=== PATIENT | male | born 1985 | race Caucasian/White ===

== ENCOUNTER 2017-04-09 22:50 | Emergency (ER) | payer OTHER ==
[~2017-04-09] VITALS: Ht 162.6 cm; Wt 59.0 kg
[2017-04-09] MEDS ORDERED: ACET500T68 PO (23:20)
--- NOTE | 2017-04-09 23:27 | PHYS DOC ---
General Chief Complaint: GROIN PAIN Stated Complaint: THINKS HAS HERNIA Time Seen by MD: 22:51 Source: patient Exam Limitations: no limitations Problems: History of Present Illness Initial Comments Pt is 31/M to ED c/o left groin pain. Pt states he's had left groin pain starting yesterday, he is requesting a hernia check. Pt has history of traumatic right sided testicular torsion suffered 2002 during a wrestling duel. 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 Pt denies recent trauma, no urinary or bowel symptoms. Pt points to his lateral left testicle when isolating his pain, however states it is worse when straining/lifting. No prearrival treatment, pt normally healthy. Timing/Duration: 24 hours Severity: moderate Modifying Factors: worse with movement, improves with rest Associated Symptoms: other Allergies: Coded Allergies: No Known Drug Allergies (Unverified , 04/09/17) Past Medical History Medical History: other (traumatic right testicle torsion) Surgical History: other (removal right testicle) Social History Smoker: cigarettes Alcohol: none Drugs: none Review of Systems Constitutional: denies chills, denies diaphoresis, denies fever, denies malaise Respiratory: denies cough, denies shortness of breath Cardiovascular: denies chest pain, denies palpitations, denies syncope Gastrointestinal: denies abdominal pain, denies diarrhea, denies nausea, denies vomiting Genitourinary: see HPI Musculoskeletal: denies back pain, denies joint swelling, denies neck pain Psychiatric/Neurological: denies headache, denies numbness, denies paresthesia Physical Exam General Appearance: WD/WN, no apparent distress Eyes: bilateral eye normal inspection, bilateral eye PERRL, bilateral eye EOMI Ear, Nose, Throat: normal ENT inspection Neck: non-tender, supple Respiratory: normal breath sounds, no respiratory distress Cardiovascular: normal peripheral pulses, regular rate, rhythm Gastrointestinal: normal bowel sounds, non tender, soft, no organomegaly, other (: right testicle absent, otherwise nl circ male. Mild right inguinal defect, does not reproduce chief complaint. Exquisite TTP left testicle no swell/ecchymoses/erytyhema/"blue dot.") Back: normal inspection, no CVA tenderness Extremities: non-tender, normal inspection Neurologic/Psychiatric: health clinician II-XII nml as tested, no motor/sensory deficits, alert, normal mood/affect, oriented x 3 Skin: normal color, warm/dry Orders, Labs, Meds UA: 100 glu 0034: Time in department 1h 44min. US not yet completed, pt will have prolonged ED course due to radiology delay. Pt rechecked, has worsening of pain. Beulah 10mg/zofran odt 4mg given. PATIENT: ELFEGO RUIZ ACCOUNT: [id number] : 1985 LOCATION: ER AGE: 31 SEX: M EXAM STATUS: REG ER ORD. PHYSICIAN: NABIL HAMILTON DO REASON: L testicular pain, h/o torsion/removal right testicle PROCEDURE: TESTICULAR/SCROTUM Testicular ultrasound HISTORY: Left testicular pain, redness and swelling. History of right orchiectomy due to torsion in the past. TECHNIQUE: Grayscale and duplex Doppler sonography were utilized. FINDINGS: Left testicle measures 4.2 x 1.9 x 2.8 cm. There is diffuse hypervascularity of the left testicle without enlargement or edema. No testicular mass or microlithiasis. Normal testicular waveforms are present. No enlargement or hypervascularity of the epididymis. No hydrocele. Mild varicocele documented. Right testicle is absent. IMPRESSION: Right orchiectomy. There is hypervascularity of the left testicle which may be indicative of orchitis. No evidence of left testicular torsion. Mild left varicocele is present. Electronically signed by: West Greene MD (04/10/2017 1:14 AM) [facility] DICTATED AND SIGNED BY: WEST GREENE MD DATE: 04/10/17111 CC: PCP,UNKNOWN; NABIL HAMILTON DO ~ I discussed findings with the patient as well as the treatment plan and his questions were answered. He expressed agreement and understanding with the treatment plan. Departure Time of Disposition: Disposition: HOME, SELF-CARE Diagnosis: orchitis, varicocele Condition: GOOD Patient Instructions: Orchitis Additional Instructions: Off work today, note given. Aggressive hydration with Gatorade or water. [id number] ibuprofen for baseline discomfort. You received doxycycline 100 mg by mouth and Rocephin 1 g intramuscularly in the emergency department tonight. Prescription: Doxycycline 100 mg Take medication with food to avoid nausea and vomiting. Follow-up with your doctor on [place] next week for recheck and urology referral if necessary. Return to ED with new or changing symptoms. NABIL HAMILTON DO Apr 09, 2017 23:27
[2017-04-10 00:27] LABS: BILIRUBIN,URINE NEG (NEG); CLARITY,URINE CLEAR; COLOR,URINE YELLOW; GLUCOSE,URINE 100 mg/dL (NEG); NITRITE,URINE NEG (NEG); RBC,URINE 0 /HPF (0-2); UROBILINOGEN,URINE 0.2 mg/dL (0.2 mg/dL)
[2017-04-10 00:28] LABS: BACTERIA,URINE 0 /HPF (0-FEW); SQUAMOUS EPITHELIAL CELL,UR OCC /LPF; WBC,URINE OCC /HPF (0-4)
[2017-04-10] MEDS ORDERED: ONDANSETRON ODT 4 MG TAB.RAPDIS PO ONE (01:00)
[2017-04-10] MEDS ORDERED: HYDROcodone/APAP 10/325 1 TAB TABLET PO ONE (01:00)
--- NOTE | 2017-04-10 01:17 | RAD ---
Testicular ultrasound HISTORY: Left testicular pain, redness and swelling. History of right orchiectomy due to torsion in the past. TECHNIQUE: Grayscale and duplex Doppler sonography were utilized. FINDINGS: Left testicle measures 4.2 x 1.9 x 2.8 cm. There is diffuse hypervascularity of the left testicle without enlargement or edema. No testicular mass or microlithiasis. Normal testicular waveforms are present. No enlargement or hypervascularity of the epididymis. No hydrocele. Mild varicocele documented. Right testicle is absent. IMPRESSION: Right orchiectomy. There is hypervascularity of the left testicle which may be indicative of orchitis. No evidence of left testicular torsion. Mild left varicocele is present. Electronically signed by: West Greene MD (04/10/2017 1:14 AM) [facility]
[2017-04-10] MEDS ORDERED: DOXY100C14 PO (01:29)
[2017-04-10 01:50] VITALS: BP 118/70
[2017-04-10] MEDS ORDERED: cefTRIAXone IM 1 GM VIAL IM ONE (02:00)
[2017-04-10] MEDS ORDERED: ACETAMINOPHEN/CODEINE 300/30MG 4TABLET STARTPACK. PO ONE (02:00)
[2017-04-10] MEDS ORDERED: DOXYCYCLINE HYCLATE 100 MG TABLET PO ONE (02:00)
== END 2017-04-10 01:50 | disposition home or self-care (01) ==
LOC: ER 22:50
DX: N45.2 Orchitis (principal); I86.1 Scrotal varices; N44.00 Torsion of testis, unspecified; F17.210 Nicotine dependence, cigarettes, uncomplicated
CPT/HCPCS: 76870; 81001; 96372; 99285; J0696; Q0162

== ENCOUNTER 2017-04-12 19:04 | Emergency (ER) | payer OTHER ==
[~2017-04-12] VITALS: Ht 162.6 cm; Wt 59.0 kg
[~2017-04-12 19:04] MED LIST: ACET500T68 PO; DOXY100C14 PO
[2017-04-12 19:17] VITALS: BP 146/63
--- NOTE | 2017-04-12 19:24 | PHYS DOC ---
Past History Past Medical History: No Pertinent History Past Surgical History: Other Additional Past Surgical Histo: RIGHT ORCHIECTOMY 2003 FROM TORSION (WRESTLING INJURY) Smoking: Cigarettes Alcohol Use: None Drug Use: None Adult General Chief Complaint Chief Complaint: TESTICULAR PAIN OR INJURY [facility] HPI Patient is a 31 year old male who presents with continued left testicular pain. The pain originally started on 04/08/17. He was seen here 04/09/17 for left testicular pain. He had an US performed that showed NO TORSION but increased vascularity c/w orchitis. He was given Rocephin IM and doxycycline po and Rx. He has been taking the doxycycline. The pain is more on the "upper part" of his testicle. Nausea but no vomiting. No testicular swelling. No fever. No urinary changes. He has not been seen yet by PCP. Review of Systems Review of Systems Constitutional: Denies fever or chills GI: Denies abdominal pain, some nausea, No vomiting, bloody stools or diarrhea : Denies dysuria or hematuria; see HPI Musculoskeletal: Denies back pain or joint pain Integument: Denies rash or skin lesions Neurologic: Denies headache, focal weakness or sensory changes Allergies Allergies Allergies Coded Allergies Type Severity Reaction Last Updated Verified No Known Drug Allergies 04/09/17 No Physical Exam Physical Exam Constitutional: Well developed, well nourished, no acute distress, non-toxic appearance. Cardiovascular:Heart rate regular rhythm, no murmur Lungs & Thorax: Bilateral breath sounds clear to auscultation Abdomen: Bowel sounds normal, soft, no tenderness, no masses, no pulsatile masses. : Custom Applicator present. right testicle missing. Left testicle with no swelling; nontender and no masses; normal lie. No scrotal swelling. Tender along palpation of epididymis. No hernia noted. No penile lesion. Skin: Warm, dry, no erythema, no rash. Neurologic: Alert and oriented X 3, normal motor function, normal sensory function, no focal deficits noted. Psychologic: Affect normal, judgement normal, mood normal. Course & Med Decision Making Course & Med Decision Making Reviewed prior record. He has no evidence today of torsion. He does not have anything for pain at home. Toradol IM here. Continue the doxycycline. Claudio (#10) written. WE HAVE NO UROLOGY COVERAGE AT THIS FACILITY. Given referral to [facility]. Dragon Disclaimer Dragon Disclaimer This chart was dictated in whole or in part using Voice Recognition software in a busy, high-work load, and often noisy Emergency Department environment. It may contain unintended and wholly unrecognized errors or omissions. Departure Departure: Impression: Primary Impression: Orchitis of left testicle Disposition: HOME, SELF-CARE Condition: GOOD Referrals: PCP,UNKNOWN (PCP) Patient Instructions: Orchitis Additional Instructions: WE HAVE NO UROLOGY COVERAGE AT [facility]. YOU CAN CALL [facility] OR THE [facility] TO SET UP AN APPOINTMENT WITH AN UROLOGIST Scripts Hydrocodone Bit/Acetaminophen (NORCO 5-325 TABLET) 1 Each Tablet 1-2 TAB PO Q4-6HRS, #10 TAB Prov: CANDACE CASTRO MD 04/12/17 Naproxen (NAPROSYN) 500 Mg Tablet 1 TAB PO BID, #30 TAB Prov: CANDACE CASTRO MD 04/12/17 CANDACE CASTRO MD Apr 12, 2017 19:24
[2017-04-12] MEDS ORDERED: KETOROLAC 60 MG/2 ML VIAL. IM ONE (19:30)
[2017-04-12] MEDS ORDERED: HYDR-971 PO (19:34)
[2017-04-12] MEDS ORDERED: NAPR500T PO (19:34)
== END 2017-04-12 19:56 | disposition home or self-care (01) ==
LOC: ER 19:04
DX: N45.2 Orchitis (principal); R11.0 Nausea; F17.210 Nicotine dependence, cigarettes, uncomplicated
CPT/HCPCS: 96372; 99283; J1885

== ENCOUNTER 2018-03-13 19:16 | Emergency (ER) | payer OTHER ==
[~2018-03-13] VITALS: Ht 162.6 cm; Wt 59.0 kg
[2018-03-13 19:16] VITALS: BP 126/84
[~2018-03-13 19:16] MED LIST changes: +HYDR-971 PO; +NAPR-683 PO
--- NOTE | 2018-03-13 19:46 | ED.ADGEN ---
Past History Past Medical History: No Pertinent History Past Surgical History: Other Additional Past Surgical Histo: RIGHT ORCHIECTOMY 2003 FROM TORSION (WRESTLING INJURY) Smoking: Cigarettes Alcohol Use: None Drug Use: None Adult General Chief Complaint Chief Complaint ".. I ve been getting this rash .. off and on .. since September... It just seem worse tonight... 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 Pt. has been living here since 2014. Has had no change in diet, meds, soaps, or other etiologies, and for rashes. Patient complains of hives and itching, and sometimes painful hives. Patient has tried Benadryl with minimal relief. Patient tried hydrocortisone with minimal relief. Normally follows at [facility]. Patient is up-to-date with vaccinations. No recent travel. No specific ill contacts. Normally healthy and telemetry developed this rash. Review of Systems Review of Systems Constitutional: Denies fever or chills [] Eyes: Denies change in visual acuity, redness, or eye pain [] HENT: Denies nasal congestion or sore throat [] Respiratory: Denies cough or shortness of breath [] Cardiovascular: No additional information not addressed in HPI [] GI: Denies abdominal pain, nausea, vomiting, bloody stools or diarrhea [] : Denies dysuria or hematuria [] Musculoskeletal: Denies back pain or joint pain [] Integument: Hives and urticaria of rash or skin lesions [] Neurologic: Denies headache, focal weakness or sensory changes [] Endocrine: Denies polyuria or polydipsia [] All other systems were reviewed and found to be within normal limits, except as documented in this note. Family History Family History Noncontributory Current Medications Current Medications Current Medications Medications (Trade) Dose Ordered Sig/Priti Start Time Stop Time Status Last Admin Dose Admin Albuterol Sulfate (Ventolin Hfa) 2 puff 1X ONCE 03/13/18 20:00 03/13/18 20:01 DC 03/13/18 19:54 2 PUFF Diphenhydramine HCl (Benadryl) 50 mg 1X ONCE 03/13/18 20:30 03/13/18 20:30 DC 03/13/18 20:01 50 MG Famotidine (Pepcid) 20 mg 1X ONCE 03/13/18 20:30 03/13/18 20:30 DC 03/13/18 20:01 20 MG Methylprednisolone Acetate (DEPO-Medrol IM) 40 mg 1X ONCE 03/13/18 20:30 03/13/18 20:30 DC 03/13/18 20:01 40 MG Allergies Allergies Allergies Coded Allergies Type Severity Reaction Last Updated Verified No Known Drug Allergies 04/09/17 No Physical Exam Physical Exam Constitutional: Well developed, well nourished, mild distress, non-toxic appearance. [] HENT: Normocephalic, atraumatic, bilateral external ears normal, oropharynx moist, no oral exudates, nose normal. [] Eyes: PERRLA, EOMI, conjunctiva normal, no discharge. [] Neck: Normal range of motion, no tenderness, supple, no stridor. [] Cardiovascular:Heart rate regular rhythm, no murmur [] Lungs & Thorax: Bilateral breath sounds clear to auscultation [] Abdomen: Bowel sounds normal, soft, no tenderness, no masses, no pulsatile masses. [] Skin: Warm, dry, has erythema, hives and urticaria rash. [] Back: No tenderness, no CVA tenderness. [] Extremities: No tenderness, no cyanosis, no clubbing, ROM intact, no edema. [] Neurologic: Alert and oriented X 3, normal motor function, normal sensory function, no focal deficits noted. [] Psychologic: Affect normal, judgement normal, mood normal. [] Current Patient Data Vital Signs Vital Signs Date Time Temp Pulse Resp B/P (MAP) Pulse Ox O2 Delivery O2 Flow Rate FiO2 03/13/18 19:16 97.7 63 16 98 Room Air EKG EKG [] Radiology/Procedures Radiology/Procedures [] Course & Med Decision Making Course & Med Decision Making Pertinent Labs and Imaging studies reviewed. (See chart for details). Keep follow-up at [facility]. His triamcinolone cream at night. Use showers. Benadryl 50 mg up 4 times a day. Zantac 150 mg twice a day. Use MDI 2 puffs 4 times a day. Patient will receive a shot of Depo-Medrol here. For severe discomfort may take ibuprofen if he is nonallergic. [] Final Impression Final Impression 1. Hives/urticaria[] Dragon Disclaimer Dragon Disclaimer This electronic medical record was generated, in whole or in part, using a voice recognition dictation system. THERESA LOPEZ MD Mar 13, 2018 19:46
[2018-03-13] MEDS ORDERED: TRIA80OI TP (19:55)
[2018-03-13] MEDS ORDERED: DIPH25CA58 PO (19:55)
[2018-03-13] MEDS ORDERED: IBUP400T18 PO (19:55)
[2018-03-13] MEDS ORDERED: RANI150T21 PO (19:55)
[2018-03-13] MEDS ORDERED: ALBUTEROL SULFATE 8GM INHALER. INH ONE (20:00)
[2018-03-13] MEDS ORDERED: methylPREDNISolone ACETATE 40 MG/ML VIAL. IM ONE (20:30)
[2018-03-13] MEDS ORDERED: FAMOTIDINE 20 MG TABLET PO ONE (20:30)
[2018-03-13] MEDS ORDERED: diphenhydrAMINE 50 MG/ML VIAL IM ONE (20:30)
== END 2018-03-13 20:06 | disposition home or self-care (01) ==
LOC: ER 19:16
DX: L50.9 Urticaria, unspecified (principal); F17.210 Nicotine dependence, cigarettes, uncomplicated
CPT/HCPCS: 94640; 96372; 99284; J1030; J1200; 94664

== ENCOUNTER 2018-11-26 19:20 | Emergency (ER) | payer OTHER ==
[~2018-11-26] VITALS: Ht 162.6 cm; Wt 59.0 kg
[~2018-11-26 19:20] MED LIST changes: +DIPH25CA58 PO; +HYDR-3165 PO; -HYDR-971 PO; +IBUP400T18 PO; +RANI150T21 PO; +TRIA80OI TP
[2018-11-26] MEDS ORDERED: ONDANSETRON PF 4 MG/2 ML VIAL. IV ONE (19:30)
[2018-11-26] MEDS ORDERED: IV NORMAL SALINE 1,000ML 1,000 ML IV ONE ×2 (19:30)
--- NOTE | 2018-11-26 19:37 | ED.ADGEN ---
Past History Past Medical History: No Pertinent History Past Surgical History: Other Additional Past Surgical Histo: RIGHT ORCHIECTOMY 2003 FROM TORSION (WRESTLING INJURY) Smoking: Cigarettes Alcohol Use: None Drug Use: None Adult General Chief Complaint Chief Complaint Vomiting and diarrhea HPI HPI 33 years old male presented to the emergency department complaining of vomiting and diarrhea started after he ate hamburger helper, initially started with the vomiting he vomited 3 times and then he had diarrhea described his diarrhea as watery constant felt very dizzy after his head his last episode of diarrhea associated with abdominal cramps especially left lower side of his abdomen no fever no chills patient feels very weak Review of Systems Review of Systems Constitutional: Denies fever or chills [] Eyes: Denies change in visual acuity, redness, or eye pain [] HENT: Denies nasal congestion or sore throat [] Respiratory: Denies cough or shortness of breath [] Cardiovascular: No additional information not addressed in HPI [] : Denies dysuria or hematuria [] Musculoskeletal: Denies back pain or joint pain [] Integument: Denies rash or skin lesions [] Neurologic: Denies headache, focal weakness or sensory changes [] Endocrine: Denies polyuria or polydipsia [] All other systems were reviewed and found to be within normal limits, except as documented in this note. Current Medications Current Medications Current Medications Medications (Trade) Dose Ordered Sig/Priti Start Time Stop Time Status Last Admin Dose Admin Morphine Sulfate (Morphine 4mg Syringe) 4 mg 1X ONCE 11/26/18 19:45 11/26/18 19:48 DC 11/26/18 19:49 4 MG Ondansetron HCl (Zofran) 4 mg 1X ONCE 11/26/18 19:30 11/26/18 19:48 DC 11/26/18 19:49 4 MG Sodium Chloride 1,000 ml @ 1,000 mls/hr 1X ONCE 11/26/18 19:30 11/26/18 20:29 DC 11/26/18 19:49 1,000 MLS/HR Allergies Allergies Allergies Coded Allergies Type Severity Reaction Last Updated Verified No Known Drug Allergies 04/09/17 No Physical Exam Physical Exam Constitutional: Well developed, well nourished, no acute distress, non-toxic appearance. [] HENT: Normocephalic, atraumatic, bilateral external ears normal, oropharynx moist, no oral exudates, nose normal. [] Eyes: PERRLA, EOMI, conjunctiva normal, no discharge. [] Neck: Normal range of motion, no tenderness, supple, no stridor. [] Cardiovascular:Heart rate regular rhythm, no murmur [] Lungs & Thorax: Bilateral breath sounds clear to auscultation [] Abdomen: Bowel sounds normal, soft, \ left lower quadrant tenderness, no masses , no pulsatile masses. [] Skin: Warm, dry, no erythema, no rash. [] \ Current Patient Data Vital Signs Vital Signs Date Time Temp Pulse Resp B/P (MAP) Pulse Ox O2 Delivery O2 Flow Rate FiO2 11/26/18 19:25 100.0 101 22 95 Room Air Lab Results Laboratory Tests Test 11/26/18 19:33 White Blood Count 9.1 x10^3/uL (4.0-11.0) Red Blood Count 5.56 x10^6/uL (4.30-5.70) Hemoglobin 16.1 g/dL (13.0-17.5) Hematocrit 48.6 % (39.0-53.0) Mean Corpuscular Volume 87 fL (79-100) Mean Corpuscular Hemoglobin 29 pg (25-35) Mean Corpuscular Hemoglobin Concent 33 g/dL (31-37) Red Cell Distribution Width 13.6 % (11.5-14.5) Platelet Count 280 x10^3/uL (140-400) Neutrophils (%) (Auto) 84 % (31-73) H Lymphocytes (%) (Auto) 5 % (24-48) L Monocytes (%) (Auto) 4 % (0-9) Eosinophils (%) (Auto) 1 % (0-3) Basophils (%) (Auto) 6 % (0-3) H Neutrophils # (Auto) 7.7 x10^3uL (1.8-7.7) Lymphocytes # (Auto) 0.4 x10^3/uL (1.0-4.8) L Monocytes # (Auto) 0.4 x10^3/uL (0.0-1.1) Eosinophils # (Auto) 0.1 x10^3/uL (0.0-0.7) Basophils # (Auto) 0.6 x10^3/uL (0.0-0.2) H Platelet Estimate Pending Sodium Level 140 mmol/L (136-145) Potassium Level 4.3 mmol/L (3.5-5.1) Chloride Level 102 mmol/L (98-107) Carbon Dioxide Level 27 mmol/L (21-32) Anion Gap 11 (6-14) Blood Urea Nitrogen 23 mg/dL (8-26) Creatinine 1.2 mg/dL (0.7-1.3) Estimated GFR (Cockcroft-Gault) 69.7 BUN/Creatinine Ratio 19 (6-20) Glucose Level 87 mg/dL (70-99) Calcium Level 9.7 mg/dL (8.5-10.1) Total Bilirubin 0.8 mg/dL (0.2-1.0) Aspartate Amino Transferase (AST) 16 U/L (15-37) Alanine Aminotransferase (ALT) 13 U/L (16-63) L Alkaline Phosphatase 73 U/L (46-116) Total Protein 7.9 g/dL (6.4-8.2) Albumin 4.4 g/dL (3.4-5.0) Albumin/Globulin Ratio 1.3 (1.0-1.7) Lipase 84 U/L (73-393) EKG EKG [] Radiology/Procedures Radiology/Procedures [] Course & Med Decision Making Course & Med Decision Making Pertinent Labs and Imaging studies reviewed. (See chart for details) Patient pain resolved vomiting stopped he refused CT scan of the abdomen with IV contrast stated my pain is gone I don't think needed I explained the risk and benefits she verbalizes understanding [] Final Impression Final Impression [] Problems: (1) Gastroenteritis Dragon Disclaimer Dragon Disclaimer This electronic medical record was generated, in whole or in part, using a voice recognition dictation system. SAMSON BAILEY MD Nov 26, 2018 19:37
[2018-11-26] MEDS ORDERED: MORPHINE SULFATE 4 MG/ML DISP.SYRIN. IV ONE (19:45)
[2018-11-26 20:10] LABS: ALBUMIN 4.4 g/dL (3.4-5.0); ALBUMIN/GLOBULIN RATIO 1.3 (1.0-1.7); CALCIUM 9.7 mg/dL (8.5-10.1); CREATININE 1.2 mg/dL (0.7-1.3); GFR 69.7; POTASSIUM 4.3 mmol/L (3.5-5.1); TOTAL BILIRUBIN 0.8 mg/dL (0.2-1.0); TOTAL PROTEIN 7.9 g/dL (6.4-8.2)
[2018-11-26 20:27] LABS: BASO # 0.6 x10^3/uL (0.0-0.2); BASO % 6 % (0-3); EOS # 0.1 x10^3/uL (0.0-0.7); EOS % 1 % (0-3); HEMATOCRIT 48.6 % (39.0-53.0); HEMOGLOBIN 16.1 g/dL (13.0-17.5); LYMPH # 0.4 x10^3/uL (1.0-4.8); LYMPH % 5 % (24-48); MEAN CORPUSCULAR HEMOGLOBIN 29 pg (25-35); MEAN CORPUSCULAR HGB CONC 33 g/dL (31-37); MEAN CORPUSCULAR VOLUME 87 fL (79-100); MONO # 0.4 x10^3/uL (0.0-1.1); MONO % 4 % (0-9); NEUT # 7.7 x10^3uL (1.8-7.7); NEUT % 84 % (31-73); PLATELET COUNT 280 x10^3/uL (140-400); RED BLOOD COUNT 5.56 x10^6/uL (4.30-5.70); RED CELL DISTRIBUTION WIDTH 13.6 % (11.5-14.5); WHITE BLOOD COUNT 9.1 x10^3/uL (4.0-11.0)
[2018-11-26] MEDS ORDERED: ONDA4TAB7 PO (20:46)
[2018-11-26] MEDS ORDERED: HYDR-3165 PO (20:46)
[2018-11-26] MEDS ORDERED: ONDANSETRON 4MG ODT 4TABLET STARTPACK. PO ONE (21:00)
[2018-11-26 21:05] VITALS: BP 137/72
[2018-11-26 21:16] LABS: BACTERIA,URINE 0 /HPF (0-FEW); BILIRUBIN,URINE NEG (NEG); CLARITY,URINE CLEAR; COLOR,URINE AMBER; GLUCOSE,URINE NEG (NEG); NITRITE,URINE NEG (NEG); RBC,URINE OCC /HPF (0-2); SQUAMOUS EPITHELIAL CELL,UR OCC /LPF; UROBILINOGEN,URINE 0.2 mg/dL (0.2 mg/dL); WBC,URINE OCC /HPF (0-4)
[2018-11-26 23:17] LABS: % BANDS 1 % (0-9); % EOS 2 % (0-5); % LYMPHS 5 % (24-48); % SEGS 86 % (35-66)
[2018-11-26 23:18] LABS: % MONOS 6 % (0-10)
[2018-11-26 23:19] LABS: PLT ESTIMATE ADEQUATE (ADEQUATE)
[2018-11-26 23:20] LABS: POLYCHROMASIA SLIGHT
== END 2018-11-26 21:07 | disposition home or self-care (01) ==
LOC: ER 19:20
DX: K52.9 Noninfective gastroenteritis and colitis, unspecified (principal); R42 Dizziness and giddiness; F17.210 Nicotine dependence, cigarettes, uncomplicated
CPT/HCPCS: 36415; 80053; 81001; 83690; 85007; 85025; 96361; 96374; 96375; 99283; J2270; J2405; Q0162; J7030